=== PATIENT | male | born 1960 | race Caucasian/White ===

== ENCOUNTER 2017-04-26 14:07 | Observation (INO) | payer OTHER, BC ==
[2017-04-26 14:49] LABS: #Eosinphils 0.1 thou/uL (0.0-0.7); #Lymphocytes 0.9 thou/uL (1.20-3.40); #Monocytes 0.8 thou/uL (0.11-0.59); #Neutrophils 4.1 thou/uL (1.40-6.50); %Basophils 0.3 % (0.0-1.0); %Eosinophils 1.5 % (0.0-10.0); %Lymphocytes 15.2 % (21.0-51.0); %Monocytes 13.5 % (0.0-10.0); %Neutrophils 69.5 % (42.0-75.0); Hemoglobin 15.5 g/dL (14.0-18.0); Mean Corpuscular HGB CONC 33.1 g/dL (32.0-36.0); Mean Corpuscular Hemoglobin 31.6 pg (27.0-31.0); Mean Corpuscular Volume 95.3 fl (80.0-94.0); Mean Platelet Volume 6.5 fL (7.4-10.4); Platelet Count 231 thou/uL (130-400); RBC Distribution Width 12.5 % (11.5-14.5); White Blood Cell (WBC) Count 5.9 thou/uL (4.8-10.8)
[2017-04-26 15:09] LABS: ALT (SGPT) 23 U/L (8-55); AST (SGOT) 22 U/L (5-34); Albumin 4.4 g/dL (3.5-5.0); Alkaline Phosphatase 59 U/L (40-150); Anion Gap 13 mmol/L (10-20); BUN (Urea Nitrogen) 21 mg/dL (8.4-25.7); Bilirubin, Total 0.6 mg/dL (0.2-1.2); CK (CPK) 183 U/L (30-200); Calc. Creatinine Clearance 0 mL/min (70-130); Calcium 10.2 mg/dL (7.8-10.44); Carbon Dioxide 24 mmol/L (22-29); Chloride 102 mmol/L (98-107); Estimated GFR-MDRD 66; Globulin 2.9 g/dL (2.4-3.5); Glucose 100 mg/dL (70-105); Lipase 32 U/L (8-78); Potassium 4.3 mmol/L (3.5-5.1); Protein, Total 7.3 g/dL (6.0-8.3); Sodium 135 mmol/L (136-145)
[2017-04-26 15:14] LABS: Troponin I Less than 0.010 ng/mL (< 0.028)
--- NOTE | 2017-04-26 15:17 | RAD ---
PORTABLE CHEST: Date: 04-26-17 Provided Clinical History: Chest pain. FINDINGS: Comparison 04-23-13. Cardiac and mediastinal silhouette is within normal limits. Lungs appear clear. No pleural fluid or p neumothorax apparent. IMPRESSION: No evidence for an acute cardiopulmonary process. POS: [facility]
[2017-04-26] MEDS ORDERED: Nitroglycerin 2% Ointment 1 INCH/1 GM Packet ONE (15:37)
[2017-04-26] MEDS ORDERED: Nitroglycerin 0.4 MG TAB (25 Tab Bottle) ONE (15:37)
[2017-04-26] MEDS ORDERED: HYDROcodone/Acetaminophen 7.5/325 mg Tablet PO PRN (17:18)
[2017-04-26] MEDS ORDERED: Ondansetron HCl/PF 4 MG/2 ML Vial IVP PRN (17:18)
[2017-04-26] MEDS ORDERED: Loperamide HCl 2 MG CAP PO PRN (17:18)
[2017-04-26] MEDS ORDERED: Milk Of Magnesia 30 ML UDCUP PO PRN (17:18)
[2017-04-26] MEDS ORDERED: Benzonatate 100 MG CAP PO PRN (17:18)
[2017-04-26] MEDS ORDERED: hydrALAZINE 20 MG/ML VIAL SLOW IVP PRN (17:18)
[2017-04-26 17:25] VITALS: BMI 32.0
[2017-04-26 18:23] LABS: Troponin I Less than 0.010 ng/mL (< 0.028)
[2017-04-26] MEDS: Famotidine 20 MG TAB PO SCH (20:09)
[2017-04-26 20:47] LABS: Troponin I Less than 0.010 ng/mL (< 0.028)
[2017-04-26] MEDS ORDERED: Amitriptyline HCl 10 MG TAB PO SCH (21:00)
--- NOTE | 2017-04-26 22:42 | HP ---
PRIMARY CARE PHYSICIAN: Dr. Iggy Henry in [place]. REASON FOR ADMISSION: Chest pain for the last 2 weeks. HISTORY OF PRESENT ILLNESS: A 57-year-old male with past medical history of hypertension and GERD, munira fairbanks came to the hospital with chest pain for the last 2 weeks. The patient is having some chest tight ness with some burning in his left arm. The patient does have acid reflux and reports that his pain gets better with belching and bowel movement, but since in 2 weeks, he is not getting better, so he d ecided to come to the hospital. Denies any recent travel. No leg pain or leg swelling. No shortnes s of breath associated with it. No cough, fever or chills. No nausea, vomiting, or diarrhea. The p atient was given some nitroglycerin in the ER and his blood pressure brought up, and he had nausea af ter that. Otherwise, he feels good. He had a stress test few years back and had to have chemical st ress test as he could not tolerate the regular stress test. PAST MEDICAL HISTORY: Positive for hypertension, gastroesophageal reflux disease, hypothyroidism, BP H, hemorrhoids. PAST SURGICAL HISTORY: Thyroidectomy, Joy fundoplication, cholecystectomy, knee arthroscopy, some rectal surgery. HOME MEDICATIONS: Tramadol 50 mg 1 to 2 p.o. b.i.d. p.r.n., tamsulosin 0.4 mg, lisinopril/hydrochlor othiazide 10/12.5, ibuprofen, glucosamine chondroitin sulfate complex, Dexilant 60 mg p.o. daily, Aleksey s 500 p.r.n., amitriptyline 10 mg p.o. at bedtime. ALLERGIES: BACTRIM, BACITRACIN, NEOMYCIN, POLYMYXIN, NEOSPORIN OINTMENTS. SOCIAL HISTORY: Drinks every day wine and beer. No smoking or illicit drug abuse. FAMILY HISTORY: Dad had coronary artery with stent placed in the 70s. Mom has hypertension. REVIEW OF SYSTEMS: The following complete review of systems was negative, unless otherwise mentioned in the HPI or below: CONSTITUTIONAL: Weight loss or gain, ability to conduct usual activities. SKIN: Rash, itching. EYES: Double vision, pain. ENT/MOUTH: Nose bleeding, neck stiffness, pain, tenderness. CARDIOVASCULAR: Palpitations, dyspnea on exertion, orthopnea. RESPIRATORY: Shortness of breath, wheezing, cough, hemoptysis, fever or night sweats. GASTROINTESTINAL: Poor appetite, abdominal pain, heartburn, nausea, vomiting, constipation, or diarrhea. GENITOURINARY: Urgency, frequency, dysuria, nocturia. MUSCULOSKELETAL: Pain, swelling. NEUROLOGIC/PSYCHIATRIC: Anxiety, depression. ALLERGY/IMMUNOLOGIC: Skin rash, bleeding tendency. PHYSICAL EXAMINATION: GENERAL: Well-built male, in no apparent distress. VITAL SIGNS: Temperature 98.0, pulse 90, respiratory 18, blood pressure 138/76 on arrival. HEENT: Atraumatic, normocephalic. Oral mucosa is moist. NECK: Supple, no masses. HEART: S1, S2 heard. Rate and rhythm regular. ABDOMEN: Soft. RESPIRATORY: Clear. MUSCULOSKELETAL: No tenderness or edema. DERMATOLOGIC: No skin rash. NEUROLOGIC: Alert, awake. PSYCHIATRIC: Mood and affect normal. LABORATORY AND X-RAY FINDINGS: Hemoglobin is 15.5, potassium is 4.3, BUN 21, creatinine is 1.1. ASSESSMENT AND PLAN: 1. Chest pain. Keep him in observation, rule out any cardiac cause. Clinically less likely to be c ardiac cause with 2-week history, but will rule out. The patient does not have significant risk fac tors for heart disease. Admit him and control his blood pressure. 2. Hypertension. Continue home medications as tolerated. 3. Edema, controlled. 4. Gastroesophageal reflux disease, most likely the cause of his symptoms, might need medication adj ustment. 5. History of hypothyroidism, status post thyroidectomy. Continue home medications. 6. BPH. We will continue Flomax. 7. Code status is FULL. 8. P.r.n. order set. Selected home medications. Continue pain control. Plan is to check a stress test in the morning and monitor troponin. EKG and troponin levels are unremarkable at this point. Monitor troponin. Stress test in the morning. Keep n.p.o. after midnight. All the above plans were discussed with the patient and his who was at the bedside. Further dec ision will be made based on the clinical course. The patient and family voiced understanding and agr eed to the plan.
[2017-04-27 05:08] LABS: Cardiac Risk 3.4 (Less than 4.5)
[2017-04-27] MEDS: Famotidine 20 MG TAB PO SCH (08:36)
[2017-04-27] MEDS ORDERED: Tamsulosin HCl 0.4 MG CAP PO SCH (09:00)
[2017-04-27] MEDS ORDERED: Lisinopril/Hydrochlorothiazide 10 mg/12.5 mg Tablet PO SCH (09:00)
--- NOTE | 2017-04-27 15:10 | NM ---
MYOCARDIAL PERFUSION EVALUATION: INDICATIONS: History of chest pain. RADIOPHARMACEUTICAL: Technetium 99m sestamibi 28.7 millicuries IV with stress. Technetium 99m sestamibi 9 millicuries with rest. FINDINGS: There is some mild reduced radiotracer activity involving the inferior wall of the left ventricular o n both stress and rest images, likely related to some overlying diaphragmatic attenuation. This does improve when attenuation correction is applied. No reversible myocardial perfusion defect is eviden t. There is normal wall motion and thickening. Estimated LVEF is 61%. The examination is not appre ciably changed from a comparison study dated 04/24/2013. IMPRESSION: 1. No scintigraphic evidence to suggest reversible myocardial ischemia. 2. Estimated left ventricular ejection fraction of 61%. POS: [facility]
[2017-04-27] MEDS ORDERED: ADENOSINE 60 MG/20 ML VIAL ONE (15:30)
[2017-04-27 15:48] VITALS: BP 115/82; TEMP 98
--- NOTE | 2017-04-28 06:45 | DIS ---
For details of the History and Physical, refer to dictations on record. SUMMARY: Mr. Blount presented here with 2 weeks' history of chest pain and was admitted to be worked up for acute coronary syndrome. The patient did undergo serial cardiac enzyme as evaluation, we did rule out acute coronary syndrome. Eventually, the patient did undergo stress test, came back and it showed preserved ejection fraction with no evidence of ischemia. The patient has remained asymptoma tic and decision was then taken to discharge this patient. On examination today, the patient was fou nd not to be in any obvious distress, hemodynamically stable, very eager to be discharged home. DIAGNOSES MANAGED DURING THIS HOSPITALIZATION: Include: 1. Chest pain, ruled out acute coronary syndrome. 2. Hypertension. 3. Hypothyroidism. The patient known to follow up with the primary care physician. 4. The patient to continue with his normal home medication which includes amitriptyline 25 mg p.o. a t bedtime, Dexilant 60 mg p.o. daily, levothyroxine 125 mcg p.o. daily, Prinzide 20/12.5 tablet 1 tab p.o. daily, Flomax 0.4 mg p.o. daily. DISCHARGE INSTRUCTIONS: 1. Follow up with the primary care physician. 2. Represent here in case of any relapse or deterioration in clinical condition.
--- NOTE | 2017-04-29 13:34 | STRESS ---
Acquisition Time: 2017-04-27 10:59:05 Total Exercise Time: 00:04:00 Test Indications: CHEST PAIN Medications: Protocol: ADENOSINE Max HR: 118 BPM 73% of Pred: 161 BPM Max BP: 124/084 mmHG Max Work Load: 1.0 METS RESTING ECG: NORMAL SINUS RHYTHM AT 92 BPM WITH OCCASIONAL PVCs NOTED SYMPTOMS: SHORTNESS OF BREATH APPROPRIATE BLOOD PRESSURE RESPONSE FOR ADENOSINE ECTOPY: FREQUENT PVCs ECG RESPONSE: [address] DEPRESSION INTERPRETATION: POSITIVE ECG/AWAIT NUCLEAR IMAGES FOR DEFINITIVE DIAGNOSIS Confirmed by SUBHA PAULINO MD ([id number]) on 04/29/2017 1:34:07 PM Referred By: Cornell SALDIVAR Confirmed By:SUBHA PAULINO MD
== END 2017-04-27 16:28 | disposition home or self-care (01) ==
LOC: ERS 14:07 → 2SW 17:14
PROVIDERS: ADMIT Internal Medicine Nephrology; ATTEND Internal Medicine Nephrology
DX: R07.89 Other chest pain (principal); I10 Essential (primary) hypertension; K21.9 Gastro-esophageal reflux disease without esophagitis; E89.0 Postprocedural hypothyroidism; N40.0 Benign prostatic hyperplasia without lower urinary tract symptoms; Z98.890 Other specified postprocedural states; Z88.1 Allergy status to other antibiotic agents; Z79.899 Other long term (current) drug therapy
CPT/HCPCS: 36415; 71010; 78452; 80053; 80061; 82550; 82553; 83690; 84484; 85025; 90471; 90732; 93005; 93017; 94760; A9500; G0009; G0378; J0153